=== PATIENT | male | born 1975 | race Caucasian/White ===

== ENCOUNTER 2020-06-18 17:42 | Observation (INO) | payer OTHER ==
[2020-06-18] MEDS ORDERED: Sodium Chloride 0.9% 10 ML Syringe FLUSH PRN (17:56)
[2020-06-18] MEDS ORDERED: Sodium Chloride 0.9% 2.5 ML Syringe FLUSH PRN (17:56)
[2020-06-18] MEDS ORDERED: Sodium Chloride 0.9% 10 ML SDV IV PRN (17:56)
--- NOTE | 2020-06-18 18:02 | EDM.PDOC ---
<Davide Aragon - Last Filed: 06/18/20 19:33> ED HPI GENERAL MEDICAL PROBLEM - General Chief Complaint: Neuro Symptoms/Deficits Stated Complaint: HEADACHE, UNABLE TO SPEAK Time Seen by Provider: 06/18/20 17:44 - History of Present Illness INITIAL COMMENTS - FREE TEXT/NARRATIVE: 7:34 PM: Signout received from Dr. Matamoros at 7 PM: This is a 45-year-old gentleman who presents ER today secondary to symptoms that are consistent with possible TIA/stroke. Patient reports his last known well was at 3:30 PM when he was talking to a colleague and started having about a 3-minute episode of expressive aphasia. Patient's work-up in the emergency department has been unremarkable. Patient had a CT scan of his head which did not reveal any acute pathology. Patient's CTA of his head and neck was also normal. Patient's vital signs are all within normal limits. Patient's NIH score is 0 at this time. At this time patient is not a candidate for any thrombolytic therapy secondary to his low NIH symptoms and his resolution of his symptoms. EKG: Normal sinus rhythm heart rate of [address]-T wave abnormalities Normal axis No evidence of ST elevation NV As interpreted by ER physician: Margo Case discussed with Dr. Smith who is agreed to systems with observation level of care of this patient. I discussed the results of the studies as well as the plan for observation the patient is in agreement with the current plan as outlined. - Related Data Allergies Allergy/AdvReac Type Severity Reaction Status Date / Time No Known Allergies Allergy Verified 06/19/20 02:59 Home Meds: Home Meds Aspirin 81 mg PO DAILY #30 tab.chew 06/19/20 [Rx] atorvaSTATin [Lipitor] 20 mg PO BEDTIME #30 tab 06/19/20 [Rx] Departure - Departure Time of Disposition: 19:38 Disposition: Admitted As Inpatient 68 Condition: Good Clinical Impression: TIA (transient ischemic attack) - Discharge Information <Humberto Matamoros - Last Filed: 06/19/20 20:23> ED HPI GENERAL MEDICAL PROBLEM - History of Present Illness INITIAL COMMENTS - FREE TEXT/NARRATIVE: 45-year-old male with no personal past history but family history of stroke in his father is presenting with now resolved productive aphasia. The patient states that 1530 (2.5 hrs ago) the patient was speaking on the phone with a colleague and knew what he wanted to say but could not get the right words out. He became very frustrated. He says that it lasted about 3 minutes before resolving. He notes that he had just been "chewed out" by his boss and the [facility] had called about another work matter. The patient remembered that his father had multiple strokes and became concerned himself. He participated in a tele-visit with a medical provider and was referred into the ER. Right now the patient feels well states that he is "terrified." But denies any neurologic symptoms. Symptoms resolved spontaneously there were no clear exacerbating or alleviating factors radiation or other associated symptoms. Head Pain Score (Numeric/FACES): 4 Past Medical History - Past Health History Medical/Surgical History: Denies Medical/Surgical History - Infectious Disease History Infectious Disease History: Reports: None Social & Family History - Tobacco Use Smoking Status *Q: Current Every Day Smoker Years of Tobacco use: 25 Packs/Tins Daily: 0.7 - Caffeine Use Caffeine Use: Reports: None - Recreational Drug Use Recreational Drug Use: No ED ROS GENERAL - Review of Systems Review Of Systems: See Below Free Text/Narrative/Comment: General: No fever. Skin: No rash. Eyes: No vision problems. ENT: No sore throat. Neck: No neck stiffness. Respiratory: No shortness of breath. Cardiac: No chest pain. Gastrointestinal: No nausea, vomiting or abdominal pain. Urinary: No dysuria. Musculoskeletal: No myalgias/arthralgias. Neurologic: Per HPI, + mild generalized headache ED EXAM, GENERAL - Physical Exam Exam: See Below Free Text/Narrative:: General Appearance: No acute distress, appears comfortable Skin: No rash HEENT: Normocephalic/atraumatic, sclera anicteric, mucous membranes moist Neck: Normal range of motion Chest and Lungs: Bilateral breath sounds, clear to auscultation Cardiovascular: Regular rate and rhythm, no murmur Abdomen: Soft, non-tender Back: Normal Musculoskeletal: No edema or tenderness Neurologic: Cranial nerves III through XI intact bilaterally, normal [id number], normal [id number], visual pablo intact bilaterally to rotation, 5 out of 5 strength upper and lower extremities, normal speech, normal orientation Psychiatric: Appropriate, cooperative Course - Vital Signs Last Recorded V/S: Last Vital Signs Temp 96.2 F L 06/19/20 11:35 Pulse 58 L 06/19/20 11:35 Resp 20 06/19/20 11:35 BP 112/60 06/19/20 11:35 Pulse Ox 97 06/19/20 11:35 - Orders/Labs/Meds Orders: Active Orders 24 hr Category Date Time Status CORONAVIRUS COVID-19 PCR PHL Stat Lab 06/18/20 20:09 Ordered Labs: Laboratory Tests 06/18/20 06/18/20 06/18/20 Range/Units 18:00 18:00 18:00 WBC 13.42 H (4.0-11.0) K/uL RBC 5.13 (4.50-5.90) M/uL Hgb 15.3 (13.0-17.0) g/dL Hct 45.2 (38.0-50.0) % MCV 88.1 (80.0-98.0) fL MCH 29.8 (27.0-32.0) pg MCHC 33.8 (31.0-37.0) g/dL RDW Std Deviation 41.1 (28.0-62.0) fl RDW Coeff of Viri 13 (11.0-15.0) % Plt Count 298 (150-400) K/uL MPV 9.40 (7.40-12.00) fL Neut % (Auto) 45.9 L (48.0-80.0) % Lymph % (Auto) 45.1 H (16.0-40.0) % [place] % (Auto) 6.0 (0.0-15.0) % Eos % (Auto) 2.5 (0.0-7.0) % Baso % (Auto) 0.5 (0.0-1.5) % Neut # (Auto) 6.2 H (1.4-5.7) K/uL Lymph # (Auto) 6.1 H (0.6-2.4) K/uL [place] # (Auto) 0.8 (0.0-0.8) K/uL Eos # (Auto) 0.3 (0.0-0.7) K/uL Baso # (Auto) 0.1 (0.0-0.1) K/uL Nucleated RBC % 0.0 /100WBC Nucleated RBCs # 0 K/uL INR 1.04 APTT 25.6 (18.6-31.3) SEC Sodium 138 (136-148) mmol/L Potassium 3.8 (3.5-5.1) mmol/L Chloride 102 (98-107) mmol/L Carbon Dioxide 24.2 (21.0-32.0) mmol/L BUN 16 (7.0-18.0) mg/dL Creatinine 1.3 (0.8-1.3) mg/dL Est Cr Clr Drug Dosing 87.57 mL/min Estimated GFR (MDRD) > 60.0 ml/min Glucose 133 H (74-106) mg/dL Calcium 8.8 (8.5-10.1) mg/dL Total Bilirubin 0.5 (0.2-1.0) mg/dL AST 37 (15-37) IU/L ALT 96 H (14-63) IU/L Alkaline Phosphatase 94 (46-116) U/L Troponin I < 0.050 (0.000-0.056) ng/mL Total Protein 7.5 (6.4-8.2) g/dL Albumin 4.0 (3.4-5.0) g/dL Globulin 3.5 (2.6-4.0) g/dL Albumin/Globulin Ratio 1.1 (0.9-1.6) TSH 3rd Generation 1.61 (0.36-3.74) uIU/mL Meds: Medications Discontinued Medications Generic Name Dose Route Start Last Admin Trade Name Freq PRN Reason Stop Dose Admin Albuterol/Ipratropium 3 ml 06/18/20 22:48 Duoneb 3.0-0.5 Mg/3 Ml NEB Q4HRRT PRN Shortness of Breath Aspirin 324 mg 06/18/20 19:41 06/19/20 01:20 Aspirin PO 06/18/20 19:42 Not Given ONETIME ONE Aspirin 81 mg 06/19/20 09:00 06/19/20 08:27 Aspirin PO 81 mg DAILY ALLI Administration Atorvastatin Calcium 40 mg 06/18/20 22:47 06/19/20 01:24 Lipitor PO 40 mg BEDTIME ALLI Administration Gadobenate Dimeglumine 20 ml 06/19/20 07:29 06/19/20 07:30 Multihance IVPUSH 06/19/20 07:30 19 ml ONETIME STA Administration Iopamidol 100 ml 06/18/20 19:30 06/18/20 19:31 Isovue-370 (76%) IVPUSH 06/18/20 19:31 100 ml ONETIME STA Administration Sodium Chloride 10 ml 06/18/20 17:56 Saline Flush FLUSH ASDIRECTED PRN Keep Vein Open Sodium Chloride 2.5 ml 06/18/20 17:56 Saline Flush FLUSH ASDIRECTED PRN Keep Vein Open Sodium Chloride 10 ml 06/18/20 17:56 Normal Saline IV ASDIRECTED PRN IV Use Sepsis Event Note (ED) - Evaluation Sepsis Screening Result: No Definite Risk - Assessment/Plan Assessment:: 45-year-old male presenting with now resolved productive aphasia as described. Acute stress reaction is a consideration. Partial seizure possible but would be unlikely in his age group is a first-time event. TIA needs to be considered. However, the duration of the episode was very brief. That said given the patient's family history (though his father was significantly older when he started having strokes). As well as the potential for stuttering symptoms with symptom recurrence later on stroke code activated. That said the patient is not a candidate for systemic TPA. This was determined at the time of my initial evaluation at 1750. Imaging and labs remain pending at 7pm. Pt signed out to Dr. Aragon pending reassessment, results and final disposition.
--- NOTE | 2020-06-18 18:27 | CT ---
Head CT Technique: Multiple axial sections through the brain were obtained. Intravenous contrast was not utilized. Comparison: No previous intracranial imaging. Findings: Ventricles are slightly dilated out of proportion to the sulci over the convexities. No abnormal parenchymal densities are appreciated. No evidence of intracranial hemorrhage. No midline shift or mass-effect is seen. Bone window settings were reviewed which shows mild mucosal thickening within the ethmoid and frontal sinuses which is most likely pre-existing and chronic. Mastoid sinuses show nothing acute. No acute calvarial finding is appreciated. Impression: 1. Slightly prominent ventricles out of proportion to the sulci over the convexities. Findings may represent mild benign ventriculomegaly. Please rule out any symptoms of normal pressure hydrocephalus. 2. No evidence of intracranial hemorrhage. No definite acute abnormality is appreciated within the brain parenchyma. Note: Consider brain MRI to further evaluate. Diagnostic code #3 This report was dictated in MDT
--- NOTE | 2020-06-18 18:37 | CT ---
CT angiogram of brain Technique: Multiple axial sections through the brain were obtained. Intravenous contrast was utilized. Study has been performed as a CT angiogram protocol. Multiple MIP images were obtained. Findings: Distal vertebral arteries are patent into the basilar artery. Basilar artery is patent into both posterior cerebral arteries. Posterior cerebral artery on the right side also gets some supply from a patent posterior right communicating artery. No focal stenosis or occlusion is seen. Carotid siphon appears patent into the middle cerebral arteries and anterior cerebral arteries. No focal occlusion or stenosis is seen. No discrete aneurysm is appreciated. Impression: 1. No abnormality is appreciated on CT angiogram of the brain. Details as described above. Diagnostic code #1 This report was dictated in MDT
--- NOTE | 2020-06-18 18:42 | CT ---
CT angiogram of neck Technique: Multiple axial sections through the neck were obtained. Intravenous contrast was utilized. Study performed as a neck angiogram. Multiple MIP images were obtained. Findings: Both common carotid arteries are patent. Carotid bulbs appear within normal limits. Internal and external carotid arteries are patent. Both vertebral arteries are patent. No evidence of focal stenosis or occlusion is seen within the neck vessels. No dissection is seen. Impression: 1. No abnormality is identified on CT angiogram of the neck. Diagnostic code #1 This report was dictated in MDT
[2020-06-18 18:50] LABS: BLOOD UREA NITROGEN,BUN 16 mg/dL (7.0-18.0); CARBON DIOXIDE,CO2 24.2 mmol/L (21.0-32.0); CHLORIDE,CL 102 mmol/L (98-107); GLUCOSE RANDOM 133 mg/dL (74-106); POTASSIUM,K 3.8 mmol/L (3.5-5.1); SODIUM,NA 138 mmol/L (136-148)
[2020-06-18] MEDS ORDERED: Iopamidol 755 Mg/ML 100 ML Bottle IVPUSH STA (19:30)
[2020-06-18] MEDS ORDERED: Aspirin 81 MG Tab.Chew PO ONE (19:41)
[2020-06-18] MEDS ORDERED: atorvaSTATin 40 MG Tab PO SCH (22:47)
[2020-06-18] MEDS ORDERED: Albuterol/Ipratropium 3.0-0.5 MG/3 ML Neb Soln NEB PRN (22:48)
--- NOTE | 2020-06-18 22:49 | PCM.HP.2 ---
H&P History of Present Illness - General Date of Service: 06/18/20 Admit Problem/Dx: Admission Diagnosis/Problem Admission Diagnosis/Problem TIA, Transient ischemic attack - History of Present Illness Initial Comments - Free Text/Narative: Patient is a 45 year old male with no significant past medical history but a positive family history of stroke ( Father had a stroke in his 50s) comes into the ER to get evaluated for expressive aphasia. Patient states that earlier today around 3:30 PM while he was talking to a client on the phone, he suddenly realized that he was not able to get the right words out. He kept saying the wrong words in spite of thinking the right word. Patient states that his sym ptoms lasted for about 2-3 minutes and then resolved on its own. She states that it was a very frustrating experience for him not to be able to express himself properly Patient states that his father had multiple strokes and hence was very concerned about himself. He states that he had no focal neurological deficits, no syncope, no chest pain, no palpitations, no urinary or bowel incontinence. Patient denied any fevers, chills, nausea, vomiting. Patient did state that he had some headache following that episode which eventually resolved on Its own. In the ER CT scan of the head was obtained which did not show any acute findings, however did show possible benign ventriculomegaly, CTA head and neck was negative for any stenosis/occlusion. Patient's rest of the blood work was reviewed which benign. His TSH was normal as well. COVID testing was negative. she is being admitted for further management. Head Pain Score (Numeric/FACES): 4 - Related Data Allergies/Adverse Reactions: Allergies Allergy/AdvReac Type Severity Reaction Status Date / Time No Known Allergies Allergy Verified 06/18/20 17:49 Home Medications: Home Meds . [No Known Home Meds] 06/18/20 [History] Past Medical History - Past Health History Medical/Surgical History: Denies Medical/Surgical History - Infectious Disease History Infectious Disease History: Reports: None Social & Family History - Tobacco Use Smoking Status *Q: Current Every Day Smoker Years of Tobacco use: 25 Packs/Tins Daily: 0.7 - Caffeine Use Caffeine Use: Reports: None - Recreational Drug Use Recreational Drug Use: No H&P Review of Systems - Review of Systems: Review Of Systems: See Below General: Denies: Fever, Chills, Malaise, Weakness HEENT: Denies: Contact Lenses, Dysphasia, Ear Pain Pulmonary: Denies: Shortness of Breath, Wheezing, Pleuritic Chest Pain Cardiovascular: Denies: Chest Pain, Palpitations, Claudication, Blood Pressure Problem Gastrointestinal: Denies: Abdominal Pain, Anorexia, Black Stool, Bloody Stool, Distension Genitourinary: Denies: Dysuria, Frequency Musculoskeletal: Denies: Neck Pain, Shoulder Pain, Arm Pain Skin: Denies: Cyanosis, Jaundice, Mottled Psychiatric: Denies: Confusion, Depression, Mood Lability, Anxiety Neurological: Denies: Confusion, Dizziness, Headache Exam - Exam Exam: See Below - Vital Signs Vital Signs: Last Vital Signs Temp 36.6 C 06/18/20 17:50 Pulse 87 06/18/20 18:48 Resp 16 06/18/20 17:50 BP 128/75 06/18/20 18:48 Pulse Ox 95 06/18/20 18:48 Weight: 95.254 kg - Exam General: Alert, Oriented Neck: Supple, Trachea Midline, +2 Carotid Pulse wo Bruit, Full Range of Motion Lungs: Clear to Auscultation, Normal Respiratory Effort Cardiovascular: Regular Rate, Regular Rhythm, Normal S1, Normal S2 GI/Abdominal Exam: Normal Bowel Sounds, Soft, Non-Tender Back Exam: Normal Inspection, Full Range of Motion Extremities: Normal Inspection, Normal Range of Motion Skin: Warm, Intact Neurological: Cranial Nerves Intact, Reflexes Equal Bilateral, Strength Equal Bilateral, Normal Gait, Normal Speech, Normal Tone, Sensation Intact. No: Focal Deficit, Hyperreflexia, Hyporeflexia, Clonus Neuro Extensive - Mental Status: Alert, Oriented x3, Normal Mood/Affect, Normal Cognition Neuro Extensive - Motor, Sensory, Reflexes: CN II-XII Intact, Normal Gait, Normal Reflexes - Patient Data Lab Results Last 24 hrs: Laboratory Results - last 24 hr 06/18/20 06/18/20 06/18/20 Range/Units 18:00 18:00 18:00 WBC 13.42 H (4.0-11.0) K/uL RBC 5.13 (4.50-5.90) M/uL Hgb 15.3 (13.0-17.0) g/dL Hct 45.2 (38.0-50.0) % MCV 88.1 (80.0-98.0) fL MCH 29.8 (27.0-32.0) pg MCHC 33.8 (31.0-37.0) g/dL RDW Std Deviation 41.1 (28.0-62.0) fl RDW Coeff of Viri 13 (11.0-15.0) % Plt Count 298 (150-400) K/uL MPV 9.40 (7.40-12.00) fL Neut % (Auto) 45.9 L (48.0-80.0) % Lymph % (Auto) 45.1 H (16.0-40.0) % [place] % (Auto) 6.0 (0.0-15.0) % Eos % (Auto) 2.5 (0.0-7.0) % Baso % (Auto) 0.5 (0.0-1.5) % Neut # (Auto) 6.2 H (1.4-5.7) K/uL Lymph # (Auto) 6.1 H (0.6-2.4) K/uL [place] # (Auto) 0.8 (0.0-0.8) K/uL Eos # (Auto) 0.3 (0.0-0.7) K/uL Baso # (Auto) 0.1 (0.0-0.1) K/uL Nucleated RBC % 0.0 /100WBC Nucleated RBCs # 0 K/uL INR 1.04 APTT 25.6 (18.6-31.3) SEC Sodium 138 (136-148) mmol/L Potassium 3.8 (3.5-5.1) mmol/L Chloride 102 (98-107) mmol/L Carbon Dioxide 24.2 (21.0-32.0) mmol/L BUN 16 (7.0-18.0) mg/dL Creatinine 1.3 (0.8-1.3) mg/dL Est Cr Clr Drug Dosing 87.57 mL/min Estimated GFR (MDRD) > 60.0 ml/min Glucose 133 H (74-106) mg/dL Calcium 8.8 (8.5-10.1) mg/dL Total Bilirubin 0.5 (0.2-1.0) mg/dL AST 37 (15-37) IU/L ALT 96 H (14-63) IU/L Alkaline Phosphatase 94 (46-116) U/L Troponin I < 0.050 (0.000-0.056) ng/mL Total Protein 7.5 (6.4-8.2) g/dL Albumin 4.0 (3.4-5.0) g/dL Globulin 3.5 (2.6-4.0) g/dL Albumin/Globulin Ratio 1.1 (0.9-1.6) TSH 3rd Generation 1.61 (0.36-3.74) uIU/mL SARS-CoV-2 RNA (HIEN) (NEGATIVE) 06/18/20 Range/Units 20:07 WBC (4.0-11.0) K/uL RBC (4.50-5.90) M/uL Hgb (13.0-17.0) g/dL Hct (38.0-50.0) % MCV (80.0-98.0) fL MCH (27.0-32.0) pg MCHC (31.0-37.0) g/dL RDW Std Deviation (28.0-62.0) fl RDW Coeff of Viri (11.0-15.0) % Plt Count (150-400) K/uL MPV (7.40-12.00) fL Neut % (Auto) (48.0-80.0) % Lymph % (Auto) (16.0-40.0) % [place] % (Auto) (0.0-15.0) % Eos % (Auto) (0.0-7.0) % Baso % (Auto) (0.0-1.5) % Neut # (Auto) (1.4-5.7) K/uL Lymph # (Auto) (0.6-2.4) K/uL [place] # (Auto) (0.0-0.8) K/uL Eos # (Auto) (0.0-0.7) K/uL Baso # (Auto) (0.0-0.1) K/uL Nucleated RBC % /100WBC Nucleated RBCs # K/uL INR APTT (18.6-31.3) SEC Sodium (136-148) mmol/L Potassium (3.5-5.1) mmol/L Chloride (98-107) mmol/L Carbon Dioxide (21.0-32.0) mmol/L BUN (7.0-18.0) mg/dL Creatinine (0.8-1.3) mg/dL Est Cr Clr Drug Dosing mL/min Estimated GFR (MDRD) ml/min Glucose (74-106) mg/dL Calcium (8.5-10.1) mg/dL Total Bilirubin (0.2-1.0) mg/dL AST (15-37) IU/L ALT (14-63) IU/L Alkaline Phosphatase (46-116) U/L Troponin I (0.000-0.056) ng/mL Total Protein (6.4-8.2) g/dL Albumin (3.4-5.0) g/dL Globulin (2.6-4.0) g/dL Albumin/Globulin Ratio (0.9-1.6) TSH 3rd Generation (0.36-3.74) uIU/mL SARS-CoV-2 RNA (HIEN) NEGATIVE (NEGATIVE) Result Diagrams: 06/18/20 18:00 06/18/20 18:00 Sepsis Event Note - Evaluation Sepsis Screening Result: No Definite Risk - Focused Exam Vital Signs: Vital Signs Temp Pulse Resp BP Pulse Ox 06/18/20 18:48 87 128/75 95 06/18/20 18:28 89 138/69 97 06/18/20 17:50 36.6 C 80 16 131/91 H 96 - Problem List (1) Aphasia SNOMED Code(s): 20387861 ICD Code: R47.01 - APHASIA Status: Acute Current Visit: Yes Problem List Initiated/Reviewed/Updated: Yes Orders Last 24hrs: Active Orders 24 hr Category Date Time Status Patient Status [ADT] Routine ADT 06/18/20 19:40 Active Ambulate [RC] ASDIRECTED Care 06/18/20 22:38 Active Antiembolic Devices [RC] PER UNIT ROUTINE Care 06/18/20 22:39 Active Assess Neurological Status [RC] ASDIRECTED Care 06/18/20 17:56 Active Bedrest [RC] ASDIRECTED Care 06/18/20 17:56 Active Blood Glucose Check, Bedside [RC] ONETIME Care 06/18/20 17:56 Active Cardiac Monitoring [RC] . DIRECTED Care 06/18/20 17:56 Active EKG Documentation Completion [RC] STAT Care 06/18/20 17:56 Active Height and Weight [RC] UPON Care 06/18/20 17:56 Active Initiate Acute Stroke Protocol [RC] STAT Care 06/18/20 17:56 Active NIH Stroke Scale [RC] ASDIRECTED Care 06/18/20 17:56 Active Nursing Bedside Swallow Screen [RC] ASDIRECTED Care 06/18/20 17:56 Active Oxygen Therapy [RC] ASDIRECTED Care 06/18/20 17:56 Active Oxygen Therapy [RC] PRN Care 06/18/20 22:38 Active Pulse Oximetry [RC] PRN Care 06/18/20 22:38 Active RT Aerosol Therapy [RC] ASDIRECTED Care 06/18/20 22:48 Active Stroke Education, General [RC] Click to Edit Care 06/18/20 17:56 Active VTE/DVT Education [RC] PER UNIT ROUTINE Care 06/18/20 22:38 Active Vital Signs [RC] Q4H Care 06/18/20 22:38 Active Regular Diet [DIET] Diet 06/18/20 Dinner Active Brain wo Cont [MR] Routine Exams 06/18/20 22:39 Ordered Echo Comp wo Cont [US] Routine Exams 06/18/20 22:46 Ordered CORONAVIRUS COVID-19 PCR PHL Stat Lab 06/18/20 20:09 Ordered GLYCOSYLATED HEMOGLOBIN,HGBA1C [CHEM] AM Lab 06/19/20 05:11 Ordered LIPID PANEL [CHEM] AM Lab 06/19/20 05:11 Ordered UA W/MALIK RFLX IF INDICATED [URIN] Routine Lab 06/18/20 22:45 Ordered Albuterol/Ipratropium [DuoNeb 3.0-0.5 MG/3 ML] Med 06/18/20 22:48 Ordered 3 ml NEB Q4HRRT PRN Aspirin Med 06/19/20 09:00 Ordered 81 mg PO DAILY Sodium Chloride 0.9% [Normal Saline] Med 06/18/20 17:56 Active 10 ml IV ASDIRECTED PRN Sodium Chloride 0.9% [Saline Flush] Med 06/18/20 17:56 Active 10 ml FLUSH ASDIRECTED PRN Sodium Chloride 0.9% [Saline Flush] Med 06/18/20 17:56 Active 2.5 ml FLUSH ASDIRECTED PRN atorvaSTATin [Lipitor] Med 06/18/20 22:47 Ordered 40 mg PO BEDTIME Peripheral IV Insertion Adult [OM.PC] Stat Oth 06/18/20 17:56 Ordered Peripheral IV Insertion Adult [OM.PC] Stat Ot 06/18/20 17:56 Ordered Sequential Compression Device [OM.PC] Per Unit Routine Ot 06/18/20 22:38 Ordered Resuscitation Status Routine Resus Stat 06/18/20 22:38 Ordered Medication Orders Albuterol/Ipratropium (Duoneb 3.0-0.5 Mg/3 Ml) 3 ml NEB Q4HRRT PRN PRN Reason: Shortness of Breath Aspirin (Aspirin) 81 mg PO DAILY ALLI Atorvastatin Calcium (Lipitor) 40 mg PO BEDTIME ALLI Sodium Chloride (Saline Flush) 10 ml FLUSH ASDIRECTED PRN PRN Reason: Keep Vein Open Sodium Chloride (Saline Flush) 2.5 ml FLUSH ASDIRECTED PRN PRN Reason: Keep Vein Open Sodium Chloride (Normal Saline) 10 ml IV ASDIRECTED PRN PRN Reason: IV Use Assessment/Plan Comment:: 45-year-old male admitted for stroke workup for possible TIA CT scan of the head, CTA of the head and neck was negative for any acute findings Admit to observation, telemetry Obtain MRI brain Obtain 2-D echo Obtained Glycated hemoglobin A1c Obtain urine analysis obtain lipid profile start patient on aspirin and statin neuro checks every 4 hours SCD for DVT prophylaxis Monitor and repeat electrolyte as needed
[2020-06-19 05:57] LABS: BLOOD UREA NITROGEN,BUN 13 mg/dL (7.0-18.0); CARBON DIOXIDE,CO2 27.3 mmol/L (21.0-32.0); CHLORIDE,CL 105 mmol/L (98-107); GLUCOSE RANDOM 97 mg/dL (74-106); POTASSIUM,K 4.3 mmol/L (3.5-5.1); SODIUM,NA 140 mmol/L (136-148)
[2020-06-19 06:40] LABS: HEMOGLOBIN A1C 5.8 % (4.5-6.2)
[2020-06-19] MEDS ORDERED: Gadobenate Dimeglumine 529 MG/ML 20 ML SDV IVPUSH STA (07:29)
[2020-06-19] MEDS ORDERED: Aspirin 81 MG Tab.Chew PO SCH (09:00)
--- NOTE | 2020-06-19 10:03 | PCM.PN ---
- Patient Data Vitals - Most Recent: Last Vital Signs Temp 36.3 C 06/19/20 08:26 Pulse 62 06/19/20 08:26 Resp 16 06/19/20 08:26 BP 111/74 06/19/20 08:26 Pulse Ox 95 06/19/20 08:26 Weight - Most Recent: 95.254 kg Lab Results Last 24 Hours: Laboratory Results - last 24 hr 06/18/20 06/18/20 06/18/20 Range/Units 18:00 18:00 18:00 WBC 13.42 H (4.0-11.0) K/uL RBC 5.13 (4.50-5.90) M/uL Hgb 15.3 (13.0-17.0) g/dL Hct 45.2 (38.0-50.0) % MCV 88.1 (80.0-98.0) fL MCH 29.8 (27.0-32.0) pg MCHC 33.8 (31.0-37.0) g/dL RDW Std Deviation 41.1 (28.0-62.0) fl RDW Coeff of Viri 13 (11.0-15.0) % Plt Count 298 (150-400) K/uL MPV 9.40 (7.40-12.00) fL Neut % (Auto) 45.9 L (48.0-80.0) % Lymph % (Auto) 45.1 H (16.0-40.0) % [place] % (Auto) 6.0 (0.0-15.0) % Eos % (Auto) 2.5 (0.0-7.0) % Baso % (Auto) 0.5 (0.0-1.5) % Neut # (Auto) 6.2 H (1.4-5.7) K/uL Lymph # (Auto) 6.1 H (0.6-2.4) K/uL [place] # (Auto) 0.8 (0.0-0.8) K/uL Eos # (Auto) 0.3 (0.0-0.7) K/uL Baso # (Auto) 0.1 (0.0-0.1) K/uL Nucleated RBC % 0.0 /100WBC Nucleated RBCs # 0 K/uL INR 1.04 APTT 25.6 (18.6-31.3) SEC Sodium 138 (136-148) mmol/L Potassium 3.8 (3.5-5.1) mmol/L Chloride 102 (98-107) mmol/L Carbon Dioxide 24.2 (21.0-32.0) mmol/L BUN 16 (7.0-18.0) mg/dL Creatinine 1.3 (0.8-1.3) mg/dL Est Cr Clr Drug Dosing 87.57 mL/min Estimated GFR (MDRD) > 60.0 ml/min Glucose 133 H (74-106) mg/dL Hemoglobin A1c (4.5-6.2) % Calcium 8.8 (8.5-10.1) mg/dL Phosphorus (2.6-4.7) mg/dL Magnesium (1.8-2.4) mg/dL Total Bilirubin 0.5 (0.2-1.0) mg/dL AST 37 (15-37) IU/L ALT 96 H (14-63) IU/L Alkaline Phosphatase 94 (46-116) U/L Troponin I < 0.050 (0.000-0.056) ng/mL Total Protein 7.5 (6.4-8.2) g/dL Albumin 4.0 (3.4-5.0) g/dL Globulin 3.5 (2.6-4.0) g/dL Albumin/Globulin Ratio 1.1 (0.9-1.6) Triglycerides (0-200) mg/dL Cholesterol (50-200) mg/dL LDL Cholesterol, Calc (60-180) mg/dL VLDL Cholesterol (5-55) mg/dL HDL Cholesterol (40-60) mg/dL Cholesterol/HDL Ratio (3.3-6.0) TSH 3rd Generation 1.61 (0.36-3.74) uIU/mL SARS-CoV-2 RNA (HIEN) (NEGATIVE) 06/18/20 06/19/20 06/19/20 Range/Units 20:07 05:17 05:17 WBC (4.0-11.0) K/uL RBC (4.50-5.90) M/uL Hgb (13.0-17.0) g/dL Hct (38.0-50.0) % MCV (80.0-98.0) fL MCH (27.0-32.0) pg MCHC (31.0-37.0) g/dL RDW Std Deviation (28.0-62.0) fl RDW Coeff of Viri (11.0-15.0) % Plt Count (150-400) K/uL MPV (7.40-12.00) fL Neut % (Auto) (48.0-80.0) % Lymph % (Auto) (16.0-40.0) % [place] % (Auto) (0.0-15.0) % Eos % (Auto) (0.0-7.0) % Baso % (Auto) (0.0-1.5) % Neut # (Auto) (1.4-5.7) K/uL Lymph # (Auto) (0.6-2.4) K/uL [place] # (Auto) (0.0-0.8) K/uL Eos # (Auto) (0.0-0.7) K/uL Baso # (Auto) (0.0-0.1) K/uL Nucleated RBC % /100WBC Nucleated RBCs # K/uL INR APTT (18.6-31.3) SEC Sodium 140 (136-148) mmol/L Potassium 4.3 (3.5-5.1) mmol/L Chloride 105 (98-107) mmol/L Carbon Dioxide 27.3 (21.0-32.0) mmol/L BUN 13 (7.0-18.0) mg/dL Creatinine 1.2 (0.8-1.3) mg/dL Est Cr Clr Drug Dosing 94.87 mL/min Estimated GFR (MDRD) > 60.0 ml/min Glucose 97 (74-106) mg/dL Hemoglobin A1c 5.8 (4.5-6.2) % Calcium 8.5 (8.5-10.1) mg/dL Phosphorus 5.0 H (2.6-4.7) mg/dL Magnesium 2.3 (1.8-2.4) mg/dL Total Bilirubin (0.2-1.0) mg/dL AST (15-37) IU/L ALT (14-63) IU/L Alkaline Phosphatase (46-116) U/L Troponin I (0.000-0.056) ng/mL Total Protein (6.4-8.2) g/dL Albumin (3.4-5.0) g/dL Globulin (2.6-4.0) g/dL Albumin/Globulin Ratio (0.9-1.6) Triglycerides 162 (0-200) mg/dL Cholesterol 167 (50-200) mg/dL LDL Cholesterol, Calc 107 (60-180) mg/dL VLDL Cholesterol 32 (5-55) mg/dL HDL Cholesterol 28 L (40-60) mg/dL Cholesterol/HDL Ratio 6.0 (3.3-6.0) TSH 3rd Generation (0.36-3.74) uIU/mL SARS-CoV-2 RNA (HIEN) NEGATIVE (NEGATIVE) 06/19/20 Range/Units 05:17 WBC 11.72 H (4.0-11.0) K/uL RBC 4.83 (4.50-5.90) M/uL Hgb 14.3 (13.0-17.0) g/dL Hct 43.1 (38.0-50.0) % MCV 89.2 (80.0-98.0) fL MCH 29.6 (27.0-32.0) pg MCHC 33.2 (31.0-37.0) g/dL RDW Std Deviation 41.7 (28.0-62.0) fl RDW Coeff of Viri 13 (11.0-15.0) % Plt Count 283 (150-400) K/uL MPV 9.70 (7.40-12.00) fL Neut % (Auto) 46.4 L (48.0-80.0) % Lymph % (Auto) 41.2 H (16.0-40.0) % [place] % (Auto) 8.4 (0.0-15.0) % Eos % (Auto) 3.2 (0.0-7.0) % Baso % (Auto) 0.8 (0.0-1.5) % Neut # (Auto) 5.5 (1.4-5.7) K/uL Lymph # (Auto) 4.8 H (0.6-2.4) K/uL [place] # (Auto) 1.0 H (0.0-0.8) K/uL Eos # (Auto) 0.4 (0.0-0.7) K/uL Baso # (Auto) 0.1 (0.0-0.1) K/uL Nucleated RBC % 0.0 /100WBC Nucleated RBCs # 0 K/uL INR APTT (18.6-31.3) SEC Sodium (136-148) mmol/L Potassium (3.5-5.1) mmol/L Chloride (98-107) mmol/L Carbon Dioxide (21.0-32.0) mmol/L BUN (7.0-18.0) mg/dL Creatinine (0.8-1.3) mg/dL Est Cr Clr Drug Dosing mL/min Estimated GFR (MDRD) ml/min Glucose (74-106) mg/dL Hemoglobin A1c (4.5-6.2) % Calcium (8.5-10.1) mg/dL Phosphorus (2.6-4.7) mg/dL Magnesium (1.8-2.4) mg/dL Total Bilirubin (0.2-1.0) mg/dL AST (15-37) IU/L ALT (14-63) IU/L Alkaline Phosphatase (46-116) U/L Troponin I (0.000-0.056) ng/mL Total Protein (6.4-8.2) g/dL Albumin (3.4-5.0) g/dL Globulin (2.6-4.0) g/dL Albumin/Globulin Ratio (0.9-1.6) Triglycerides (0-200) mg/dL Cholesterol (50-200) mg/dL LDL Cholesterol, Calc (60-180) mg/dL VLDL Cholesterol (5-55) mg/dL HDL Cholesterol (40-60) mg/dL Cholesterol/HDL Ratio (3.3-6.0) TSH 3rd Generation (0.36-3.74) uIU/mL SARS-CoV-2 RNA (HIEN) (NEGATIVE) Med Orders - Current: Current Medications Albuterol/Ipratropium (Duoneb 3.0-0.5 Mg/3 Ml) 3 ml NEB Q4HRRT PRN PRN Reason: Shortness of Breath Aspirin (Aspirin) 81 mg PO DAILY [facility] Last Admin: 06/19/20 08:27 Dose: 81 mg Documented by: Atorvastatin Calcium (Lipitor) 40 mg PO BEDTIME [facility] Last Admin: 06/19/20 01:24 Dose: 40 mg Documented by: Sodium Chloride (Saline Flush) 10 ml FLUSH ASDIRECTED PRN PRN Reason: Keep Vein Open Sodium Chloride (Saline Flush) 2.5 ml FLUSH ASDIRECTED PRN PRN Reason: Keep Vein Open Sodium Chloride (Normal Saline) 10 ml IV ASDIRECTED PRN PRN Reason: IV Use Discontinued Medications Aspirin (Aspirin) 324 mg PO ONETIME ONE Stop: 06/18/20 19:42 Last Admin: 06/19/20 01:20 Dose: Not Given Documented by: Gadobenate Dimeglumine (Multihance) 20 ml IVPUSH ONETIME STA Stop: 06/19/20 07:30 Last Admin: 06/19/20 07:30 Dose: 19 ml Documented by: Iopamidol (Isovue-[id number] (76%)) 100 ml IVPUSH ONETIME STA Stop: 06/18/20 19:31 Last Admin: 06/18/20 19:31 Dose: 100 ml Documented by: Sepsis Event Note - Evaluation Sepsis Screening Result: No Definite Risk - Focused Exam Vital Signs: Vital Signs Temp Pulse Resp BP Pulse Ox Pulse Ox 06/19/20 08:26 36.3 C 62 16 111/74 95 06/19/20 04:36 36.6 C 64 16 128/68 96 06/19/20 01:16 97 06/18/20 22:45 37.1 C 80 14 128/79 97 97 - Problem List & Annotations (1) Aphasia SNOMED Code(s): 95783539 Code(s): R47.01 - APHASIA Status: Acute Current Visit: Yes - My Orders Last 24 Hours: My Active Orders 06/18/20 Dinner Regular Diet [DIET] 06/18/20 22:23 Telemetry Monitoring [Cardiac Monitoring] [RC] . DIRECTED 06/18/20 22:38 Ambulate [RC] ASDIRECTED Oxygen Therapy [RC] PRN Pulse Oximetry [RC] PRN VTE/DVT Education [RC] PER UNIT ROUTINE Vital Signs [RC] Q4H Sequential Compression Device [OM.PC] Per Unit Routine Resuscitation Status Routine 06/18/20 22:39 Antiembolic Devices [RC] PER UNIT ROUTINE Brain wo Cont [MR] Routine 06/18/20 22:47 atorvaSTATin [Lipitor] 40 mg PO BEDTIME 09/23/20 22:48 RT Aerosol Therapy [RC] ASDIRECTED Albuterol/Ipratropium [DuoNeb 3.0-0.5 MG/3 ML] 3 ml NEB Q4HRRT PRN 06/18/20 23:10 Brain w wo Cont [MR] Routine 06/18/20 23:56 UA W/MALIK RFLX IF INDICATED [URIN] Routine 06/19/20 08:00 Echo Comp wo Cont [US] Routine 06/19/20 08:46 Discontinue Telemetry Monitoring [Cardiac Monitoring Discontinue] [RC] Click to Edit 06/19/20 09:00 Aspirin 81 mg PO DAILY - Plan Plan:: 45-year-old male admitted for stroke workup for possible TIA CT scan of the head, CTA of the head and neck was negative for any acute findings Admit to observation, telemetry Obtain MRI brain Obtain 2-D echo Obtained Glycated hemoglobin A1c Obtain urine analysis obtain lipid profile start patient on aspirin and statin neuro checks every 4 hours SCD for DVT prophylaxis Monitor and repeat electrolyte as needed
--- NOTE | 2020-06-19 12:23 | PCM.DCSUM1 ---
Discharge Summary - Hospital Course Free Text/Narrative:: Patient is a 45 year old male with no significant past medical history but a positive family history of stroke ( Father had a stroke in his 50s) comes into the ER to get evaluated for expressive aphasia. Patient states that earlier today around 3:30 PM while he was talking to a client on the phone, he suddenly realized that he was not able to get the right words out. He kept saying the wrong words in spite of thinking the right word. Patient states that his symptoms lasted for about 2-3 minutes and then resolved on its own. She states that it was a very frustrating experience for him not to be able to express himself properly Patient states that his father had multiple strokes and hence was very concerned about himself. He states that he had no focal neurological deficits, no syncope, no chest pain, no palpitations, no urinary or bowel i ncontinence. Patient denied any fevers, chills, nausea, vomiting. Patient did state that he had some headache following that episode which eventually resolved on Its own. In the ER CT scan of the head was obtained which did not show any acute findings, however did show possible benign ventriculomegaly, CTA head and neck was negative for any stenosis/occlusion. Patient's rest of the blood work was reviewed which benign. His TSH was normal as well. COVID testing was negative. Patient was admitted for further management. MRI of the brain was done which showed no acute infarct but mild chronic ischemic changes. ECHO report pending, patient TSH, HbA1c, lipid was normal. he was started on low dose ASA and atorvastatin and was keen to be discharged next day, patient was medically stable for dc. Telemetry overnight was unremarkable. recommended to fu with her PCP upon dc. Diagnosis: Stroke: Yes Modified [place] Scale: No Symptoms at All Modified [place] Scale Score: 0 - Discharge Data Discharge Date: 06/19/20 Discharge Disposition: Home, Self-Care 01 Condition: Good - Referral to Home Health Primary Care Physician: PCP None - Discharge Diagnosis/Problem(s) (1) Aphasia SNOMED Code(s): 19686146 ICD Code: R47.01 - APHASIA Status: Acute (2) TIA (transient ischemic attack) SNOMED Code(s): 771635795 ICD Code: G45.9 - TRANSIENT CEREBRAL ISCHEMIC ATTACK, UNSPECIFIED Status: Acute - Discharge Plan *PRESCRIPTION DRUG MONITORING PROGRAM REVIEWED*: Not Applicable *COPY OF PRESCRIPTION DRUG MONITORING REPORT IN PATIENT LOGAN: Not Applicable Prescriptions/Med Rec: Aspirin 81 mg PO DAILY #30 tab.chew atorvaSTATin [Lipitor] 20 mg PO BEDTIME #30 tab Home Medications: Home Meds Aspirin 81 mg PO DAILY #30 tab.chew 06/19/20 [Rx] atorvaSTATin [Lipitor] 20 mg PO BEDTIME #30 tab 06/19/20 [Rx] Patient Handouts: Aspirin, ASA chewable tablets, Aphasia, Transient Ischemic Attack, [id number], Atorvastatin tablets Referrals: [facility] [Ordering Only Provider] - - Discharge Summary/Plan Comment DC Time >30 min.: No - Patient Data Vitals - Most Recent: Last Vital Signs Temp 35.7 C L 06/19/20 11:35 Pulse 58 L 06/19/20 11:35 Resp 20 06/19/20 11:35 BP 112/60 06/19/20 11:35 Pulse Ox 97 06/19/20 11:35 Weight - Most Recent: 95.254 kg Lab Results - Last 24 hrs: Laboratory Results - last 24 hr 06/18/20 06/18/20 06/18/20 Range/Units 18:00 18:00 18:00 WBC 13.42 H (4.0-11.0) K/uL RBC 5.13 (4.50-5.90) M/uL Hgb 15.3 (13.0-17.0) g/dL Hct 45.2 (38.0-50.0) % MCV 88.1 (80.0-98.0) fL MCH 29.8 (27.0-32.0) pg MCHC 33.8 (31.0-37.0) g/dL RDW Std Deviation 41.1 (28.0-62.0) fl RDW Coeff of Viri 13 (11.0-15.0) % Plt Count 298 (150-400) K/uL MPV 9.40 (7.40-12.00) fL Neut % (Auto) 45.9 L (48.0-80.0) % Lymph % (Auto) 45.1 H (16.0-40.0) % [place] % (Auto) 6.0 (0.0-15.0) % Eos % (Auto) 2.5 (0.0-7.0) % Baso % (Auto) 0.5 (0.0-1.5) % Neut # (Auto) 6.2 H (1.4-5.7) K/uL Lymph # (Auto) 6.1 H (0.6-2.4) K/uL [place] # (Auto) 0.8 (0.0-0.8) K/uL Eos # (Auto) 0.3 (0.0-0.7) K/uL Baso # (Auto) 0.1 (0.0-0.1) K/uL Nucleated RBC % 0.0 /100WBC Nucleated RBCs # 0 K/uL INR 1.04 APTT 25.6 (18.6-31.3) SEC Sodium 138 (136-148) mmol/L Potassium 3.8 (3.5-5.1) mmol/L Chloride 102 (98-107) mmol/L Carbon Dioxide 24.2 (21.0-32.0) mmol/L BUN 16 (7.0-18.0) mg/dL Creatinine 1.3 (0.8-1.3) mg/dL Est Cr Clr Drug Dosing 87.57 mL/min Estimated GFR (MDRD) > 60.0 ml/min Glucose 133 H (74-106) mg/dL Hemoglobin A1c (4.5-6.2) % Calcium 8.8 (8.5-10.1) mg/dL Phosphorus (2.6-4.7) mg/dL Magnesium (1.8-2.4) mg/dL Total Bilirubin 0.5 (0.2-1.0) mg/dL AST 37 (15-37) IU/L ALT 96 H (14-63) IU/L Alkaline Phosphatase 94 (46-116) U/L Troponin I < 0.050 (0.000-0.056) ng/mL Total Protein 7.5 (6.4-8.2) g/dL Albumin 4.0 (3.4-5.0) g/dL Globulin 3.5 (2.6-4.0) g/dL Albumin/Globulin Ratio 1.1 (0.9-1.6) Triglycerides (0-200) mg/dL Cholesterol (50-200) mg/dL LDL Cholesterol, Calc (60-180) mg/dL VLDL Cholesterol (5-55) mg/dL HDL Cholesterol (40-60) mg/dL Cholesterol/HDL Ratio (3.3-6.0) TSH 3rd Generation 1.61 (0.36-3.74) uIU/mL Urine Color Urine Appearance Urine pH (5.0-8.0) Ur Specific [place] (1.001-1.035) Urine Protein (NEGATIVE) mg/dL Urine Glucose (UA) (NEGATIVE) mg/dL Urine Ketones (NEGATIVE) mg/dL Urine Occult Blood (NEGATIVE) Urine Nitrite (NEGATIVE) Urine Bilirubin (NEGATIVE) Urine Urobilinogen (<2.0) EU/dL Ur Leukocyte Esterase (NEGATIVE) SARS-CoV-2 RNA (HIEN) (NEGATIVE) 06/18/20 06/19/20 06/19/20 Range/Units 20:07 05:17 05:17 WBC (4.0-11.0) K/uL RBC (4.50-5.90) M/uL Hgb (13.0-17.0) g/dL Hct (38.0-50.0) % MCV (80.0-98.0) fL MCH (27.0-32.0) pg MCHC (31.0-37.0) g/dL RDW Std Deviation (28.0-62.0) fl RDW Coeff of Viri (11.0-15.0) % Plt Count (150-400) K/uL MPV (7.40-12.00) fL Neut % (Auto) (48.0-80.0) % Lymph % (Auto) (16.0-40.0) % [place] % (Auto) (0.0-15.0) % Eos % (Auto) (0.0-7.0) % Baso % (Auto) (0.0-1.5) % Neut # (Auto) (1.4-5.7) K/uL Lymph # (Auto) (0.6-2.4) K/uL [place] # (Auto) (0.0-0.8) K/uL Eos # (Auto) (0.0-0.7) K/uL Baso # (Auto) (0.0-0.1) K/uL Nucleated RBC % /100WBC Nucleated RBCs # K/uL INR APTT (18.6-31.3) SEC Sodium 140 (136-148) mmol/L Potassium 4.3 (3.5-5.1) mmol/L Chloride 105 (98-107) mmol/L Carbon Dioxide 27.3 (21.0-32.0) mmol/L BUN 13 (7.0-18.0) mg/dL Creatinine 1.2 (0.8-1.3) mg/dL Est Cr Clr Drug Dosing 94.87 mL/min Estimated GFR (MDRD) > 60.0 ml/min Glucose 97 (74-106) mg/dL Hemoglobin A1c 5.8 (4.5-6.2) % Calcium 8.5 (8.5-10.1) mg/dL Phosphorus 5.0 H (2.6-4.7) mg/dL Magnesium 2.3 (1.8-2.4) mg/dL Total Bilirubin (0.2-1.0) mg/dL AST (15-37) IU/L ALT (14-63) IU/L Alkaline Phosphatase (46-116) U/L Troponin I (0.000-0.056) ng/mL Total Protein (6.4-8.2) g/dL Albumin (3.4-5.0) g/dL Globulin (2.6-4.0) g/dL Albumin/Globulin Ratio (0.9-1.6) Triglycerides 162 (0-200) mg/dL Cholesterol 167 (50-200) mg/dL LDL Cholesterol, Calc 107 (60-180) mg/dL VLDL Cholesterol 32 (5-55) mg/dL HDL Cholesterol 28 L (40-60) mg/dL Cholesterol/HDL Ratio 6.0 (3.3-6.0) TSH 3rd Generation (0.36-3.74) uIU/mL Urine Color Urine Appearance Urine pH (5.0-8.0) Ur Specific [place] (1.001-1.035) Urine Protein (NEGATIVE) mg/dL Urine Glucose (UA) (NEGATIVE) mg/dL Urine Ketones (NEGATIVE) mg/dL Urine Occult Blood (NEGATIVE) Urine Nitrite (NEGATIVE) Urine Bilirubin (NEGATIVE) Urine Urobilinogen (<2.0) EU/dL Ur Leukocyte Esterase (NEGATIVE) SARS-CoV-2 RNA (HIEN) NEGATIVE (NEGATIVE) 06/19/20 06/19/20 Range/Units 05:17 11:20 WBC 11.72 H (4.0-11.0) K/uL RBC 4.83 (4.50-5.90) M/uL Hgb 14.3 (13.0-17.0) g/dL Hct 43.1 (38.0-50.0) % MCV 89.2 (80.0-98.0) fL MCH 29.6 (27.0-32.0) pg MCHC 33.2 (31.0-37.0) g/dL RDW Std Deviation 41.7 (28.0-62.0) fl RDW Coeff of Viri 13 (11.0-15.0) % Plt Count 283 (150-400) K/uL MPV 9.70 (7.40-12.00) fL Neut % (Auto) 46.4 L (48.0-80.0) % Lymph % (Auto) 41.2 H (16.0-40.0) % [place] % (Auto) 8.4 (0.0-15.0) % Eos % (Auto) 3.2 (0.0-7.0) % Baso % (Auto) 0.8 (0.0-1.5) % Neut # (Auto) 5.5 (1.4-5.7) K/uL Lymph # (Auto) 4.8 H (0.6-2.4) K/uL [place] # (Auto) 1.0 H (0.0-0.8) K/uL Eos # (Auto) 0.4 (0.0-0.7) K/uL Baso # (Auto) 0.1 (0.0-0.1) K/uL Nucleated RBC % 0.0 /100WBC Nucleated RBCs # 0 K/uL INR APTT (18.6-31.3) SEC Sodium (136-148) mmol/L Potassium (3.5-5.1) mmol/L Chloride (98-107) mmol/L Carbon Dioxide (21.0-32.0) mmol/L BUN (7.0-18.0) mg/dL Creatinine (0.8-1.3) mg/dL Est Cr Clr Drug Dosing mL/min Estimated GFR (MDRD) ml/min Glucose (74-106) mg/dL Hemoglobin A1c (4.5-6.2) % Calcium (8.5-10.1) mg/dL Phosphorus (2.6-4.7) mg/dL Magnesium (1.8-2.4) mg/dL Total Bilirubin (0.2-1.0) mg/dL AST (15-37) IU/L ALT (14-63) IU/L Alkaline Phosphatase (46-116) U/L Troponin I (0.000-0.056) ng/mL Total Protein (6.4-8.2) g/dL Albumin (3.4-5.0) g/dL Globulin (2.6-4.0) g/dL Albumin/Globulin Ratio (0.9-1.6) Triglycerides (0-200) mg/dL Cholesterol (50-200) mg/dL LDL Cholesterol, Calc (60-180) mg/dL VLDL Cholesterol (5-55) mg/dL HDL Cholesterol (40-60) mg/dL Cholesterol/HDL Ratio (3.3-6.0) TSH 3rd Generation (0.36-3.74) uIU/mL Urine Color YELLOW Urine Appearance CLEAR Urine pH 5.5 (5.0-8.0) Ur Specific [place] >= 1.030 (1.001-1.035) Urine Protein NEGATIVE (NEGATIVE) mg/dL Urine Glucose (UA) NEGATIVE (NEGATIVE) mg/dL Urine Ketones NEGATIVE (NEGATIVE) mg/dL Urine Occult Blood NEGATIVE (NEGATIVE) Urine Nitrite NEGATIVE (NEGATIVE) Urine Bilirubin NEGATIVE (NEGATIVE) Urine Urobilinogen 0.2 (<2.0) EU/dL Ur Leukocyte Esterase NEGATIVE (NEGATIVE) SARS-CoV-2 RNA (HIEN) (NEGATIVE) Med Orders - Current: Current Medications Albuterol/Ipratropium (Duoneb 3.0-0.5 Mg/3 Ml) 3 ml NEB Q4HRRT PRN PRN Reason: Shortness of Breath Aspirin (Aspirin) 81 mg PO DAILY [facility] Last Admin: 06/19/20 08:27 Dose: 81 mg Documented by: Atorvastatin Calcium (Lipitor) 40 mg PO BEDTIME [facility] Last Admin: 06/19/20 01:24 Dose: 40 mg Documented by: Sodium Chloride (Saline Flush) 10 ml FLUSH ASDIRECTED PRN PRN Reason: Keep Vein Open Sodium Chloride (Saline Flush) 2.5 ml FLUSH ASDIRECTED PRN PRN Reason: Keep Vein Open Sodium Chloride (Normal Saline) 10 ml IV ASDIRECTED PRN PRN Reason: IV Use Discontinued Medications Aspirin (Aspirin) 324 mg PO ONETIME ONE Stop: 06/18/20 19:42 Last Admin: 06/19/20 01:20 Dose: Not Given Documented by: Gadobenate Dimeglumine (Multihance) 20 ml IVPUSH ONETIME STA Stop: 06/19/20 07:30 Last Admin: 06/19/20 07:30 Dose: 19 ml Documented by: Iopamidol ([id number] (76%)) 100 ml IVPUSH ONETIME STA Stop: 06/18/20 19:31 Last Admin: 06/18/20 19:31 Dose: 100 ml Documented by:
--- NOTE | 2020-06-20 01:37 | MR ---
Indication: : Aphasia Comparison: : CT head without contrast 06/18/2020 Technique: : Multiplanar multisequence magnetic resonance imaging of the brain performed with and without intravenous contrast. Performed sequences include axial T2 FS, axial T2 FLAIR, axial DWI with ADC map, sagittal BrainView T1 with multiplanar reconstruction, axial SWI with MIP, and sagittal BrainView T1 postcontrast with multiplanar reconstruction. Gadolinium contrast agent was administered intravenously. FINDINGS: There is no intracranial mass, hemorrhage, or edema. There is no diffusion restriction or pathologic enhancement. A few small T2 hyperintense foci scattered in the cerebral white matter are nonspecific and most likely represent mild chronic microvascular ischemic change. There is normal size of the ventricles. The basal cisterns patent. The orbital contents are unremarkable. IMPRESSION: 1. No intracranial mass, hemorrhage, or acute infarct. 2. Mild chronic microvascular ischemic change of the cerebral white matter. Dictated by Rasta Bolanos MD @ Jun 20 2020 1:35AM Signed by Dr. Rasta Bolanos @ Jun 20 2020 1:35AM
--- NOTE | 2020-06-23 13:41 | ECHO ---
EXAM DATE: 06/18/20 PATIENT'S AGE: 45 The ECHO report has been scanned into [employer] and can be seen in this patient's EMR (Electronic Medical Record) under the REPORTS section. The report has also been scanned into PACS. DIANE
== END 2020-06-19 13:09 | disposition home or self-care (01) ==
LOC: MW.ED 17:42 → MW.MS 19:40
PROVIDERS: ADMIT Student in an Organized Health Care Education/Training Program; ATTEND Student in an Organized Health Care Education/Training Program
DX: G45.9 Transient cerebral ischemic attack, unspecified (principal); F17.210 Nicotine dependence, cigarettes, uncomplicated; Z82.3 Family history of stroke; Z20.828 Contact with and (suspected) exposure to other viral communicable diseases
CPT/HCPCS: 36415; 70450; 70496; 70498; 70553; 80048; 80053; 80061; 81003; 83036; 83735; 84100; 84443; 84484; 85025; 85610; 85730; 87635; 93005; 93306; 99285; A9270; A9577; G0378; Q9967; U0002